=== PATIENT | female | born 1980 | race African-American/Black ===

== ENCOUNTER 2016-12-30 12:50 | Emergency (ER) | payer MEDICAID ==
[~2016-12-30] VITALS: Ht 157.5 cm; Wt 158.8 kg
[2016-12-30 13:05] VITALS: BP 115/63
== END 2016-12-30 16:46 | disposition left against medical advice (07) ==
LOC: ER 12:50
DX: R10.9 Unspecified abdominal pain (principal); M54.5 Low back pain; Z53.21 Procedure and treatment not carried out due to patient leaving prior to being seen by health care provider

== ENCOUNTER 2017-06-15 10:31 | Emergency (ER) | payer MEDICAID ==
[~2017-06-15] VITALS: Ht 157.5 cm; Wt 158.8 kg
[2017-06-15 11:00] LABS: Urine RBC None Seen /hpf (0 - 4)
[2017-06-15 11:15] LABS: Urine Bilirubin Negative (Negative); Urine Blood Negative /uL (Negative); Urine Color Yellow (Yellow); Urine Glucose Normal (Normal); Urine Ketone Negative (Negative); Urine Mucus FEW (None Seen); Urine Nitrite Negative (Negative); Urine Squamous Epithelial Cell MANY /hpf (<5); Urine Urobilinogen Normal (Negative)
[2017-06-15 11:26] LABS: Eosinophils # (auto) 0.5 uL; Lymphocytes # (auto) 3.4 uL; Mean Corpuscular Hemoglobin 19.4 pg (28.0-32.0); Monocytes # (auto) 0.4 uL
[2017-06-15 11:27] LABS: Basophils # (auto) 0.4 uL; Eosinophils % (auto) 6.1 % (0.0-7.0); Hematocrit 35.6 % (36.0-46.0); Hemoglobin 10.6 g/dL (12.2-16.2); Lymphocytes % (auto) 37.2 % (10.0-50.0); Mean Corpuscular Hgb Conc. 29.9 g/dL (32.0-36.0); Mean Corpuscular Volume 64.8 fL (80.0-100.0); Monocytes % (auto) 4.3 % (0.0-12.0); Neutrophils # (auto) 4.4 uL; Neutrophils % (auto) 48.4 % (37.0-80.0); Nucleated Red Blood Cells % 0.4 %; Platelet Count (auto) 446 10^3/uL (140-450); Red Cell Distribution Width 19.8 % (11.8-14.3)
[2017-06-15 11:34] LABS: Platelet Estimate Adequate
[2017-06-15 11:35] LABS: Anisocytosis Slight; Hypochromia Marked; Microcytosis Marked
[2017-06-15 11:47] LABS: Albumin 3.4 g/dL (3.4-5.0); BUN/Creatinine Ratio 9.5; Bilirubin, Total 0.3 mg/dL (0.2-1.0); Calcium 8.5 mg/dL (8.5-10.1); Total Protein 8.4 g/dL (6.4-8.2)
[2017-06-15 12:46] VITALS: BP 133/62
== END 2017-06-15 13:03 | disposition home or self-care (01) ==
LOC: ER 10:31
DX: R10.31 Right lower quadrant pain (principal)
CPT/HCPCS: 36415; 74176; 80053; 81001; 85025